=== PATIENT | female | born 1945 | race Caucasian/White ===

== ENCOUNTER → 2019-05-15 | Outpatient (CLI) | payer OTHER ==
[~2019-05-15] MED LIST: AMLO5TAB9 PO; ASCO10007 PO; CHOL-9 PO; CYAN250010 SL; ESCI20TA36 PO; L-THYROXIN PO; MAGN400T40 PO; MULT-729 PO; SUMATRIPTAN PO
== END | disposition home or self-care (01) ==
LOC: RAH 10:17
PROVIDERS: ATTEND Internal Medicine Cardiovascular Disease
DX: Z13.6 Encounter for screening for cardiovascular disorders (principal)
CPT/HCPCS: 75571

== ENCOUNTER 2019-05-29 12:00 | Observation (INO) | payer OTHER ==
[~2019-05-29] VITALS: Ht 165.1 cm; Wt 84.1 kg
[2019-06-30 09:38] LABS: BASOPHILS % (AUTO) 0.4 % (0.0-5.0); EOSINOPHILS % (AUTO) 1.2 % (0.0-8.0); HEMATOCRIT 41.4 % (36-48); LYMPHOCYTES % (AUTO) 19.8 % (21.0-51.0); MEAN CORPUSCULAR HEMOGLOBIN 30.8 pg (27.0-33.0); MEAN CORPUSCULAR HGB CONC 34.3 g/dL (32.0-36.0); MEAN CORPUSCULAR VOLUME 89.8 fL (79-99); MONOCYTES % (AUTO) 9.2 % (3.0-13.0); NEUTROPHILS % (AUTO) 68.8 % (40.0-77.0); PLATELET COUNT (AUTO) 303 K/uL (130-400); RED BLOOD CELL COUNT(AUTO) 4.61 MIL/uL (4.00-5.50); RED CELL DISTRIBUTION WIDTH 12.4 % (11.0-15.5); WHITE BLOOD COUNT (AUTO) 13.6 K/uL (4.8-10.8)
[2019-06-30 09:53] LABS: CREATININE 1.4 mg/dL (0.5-1.5); POTASSIUM 3.8 mmol/L (3.5-5.1)
[2019-06-30 10:04] VITALS: BP 127/70
[2019-06-30] MEDS: CEFAZOLIN SODIUM 1 GM VIAL IVP SCH (11:15)
[2019-06-30] MEDS ORDERED: AMLO2.5T4 PO (11:24)
[2019-06-30] MEDS ORDERED: LEVO50TA11 PO (11:24)
[2019-06-30] MEDS ORDERED: LEVO50 PO (11:24)
[2019-06-30] MEDS ORDERED: OMEP40CA13 PO (11:27)
[2019-06-30] MEDS ORDERED: FLUT16H NASAL (11:27)
[2019-06-30] MEDS ORDERED: MONT10TA26 PO (11:27)
[2019-06-30] MEDS ORDERED: BUDE10.2 IH (11:27)
[2019-06-30] MEDS ORDERED: TRIA1TAB3 PO (11:27)
[2019-06-30] MEDS ORDERED: ROPI1TAB13 PO (11:27)
--- NOTE | 2019-06-30 11:33 | NUR ---
LABS ABNORMAL LABS REPORTED TO DR. VEGA, MESSAGE LEFT WITH JESSICA , AWAITING FOR FURTHER ORDERS
--- NOTE | 2019-06-30 14:20 | NUR ---
LABS PER ANESTHESIA REPEAT LABS AM OF SURGERY. DUE TO ABNORMAL LABS REPORTED
[2019-07-01] VITALS (25 sets, daily range): BP systolic 97–167; BP diastolic 46–78
[2019-07-01 06:22] LABS: BASOPHILS % (AUTO) 0.4 % (0.0-5.0); EOSINOPHILS % (AUTO) 2.3 % (0.0-8.0); HEMATOCRIT 40.2 % (36-48); LYMPHOCYTES % (AUTO) 21.3 % (21.0-51.0); MEAN CORPUSCULAR HEMOGLOBIN 30.6 pg (27.0-33.0); MEAN CORPUSCULAR HGB CONC 34.6 g/dL (32.0-36.0); MEAN CORPUSCULAR VOLUME 88.5 fL (79-99); MONOCYTES % (AUTO) 10.4 % (3.0-13.0); NEUTROPHILS % (AUTO) 64.9 % (40.0-77.0); PLATELET COUNT (AUTO) 281 K/uL (130-400); RED BLOOD CELL COUNT(AUTO) 4.54 MIL/uL (4.00-5.50); RED CELL DISTRIBUTION WIDTH 12.2 % (11.0-15.5); WHITE BLOOD COUNT (AUTO) 13.7 K/uL (4.8-10.8)
[2019-07-01] MEDS ORDERED: CEFAZOLIN SODIUM 1 GM VIAL ONE ×2 (06:22→08:18)
[2019-07-01] MEDS ORDERED: LACTATED RINGERS 1000ML 1,000 ML IV ONE (06:22)
[2019-07-01 06:32] LABS: CREATININE 1.3 mg/dL (0.5-1.5); POTASSIUM 3.1 mmol/L (3.5-5.1)
--- NOTE | 2019-07-01 07:05 | NUR ---
LABS REPEAT LABS THIS AM REPORTED TO SHIVA MERCADO CRNA. NO FURTHER ORDERS GIVEN
[2019-07-01] MEDS ORDERED: ONDANSETRON HCL 4 MG/2 ML VIAL ONE (08:15)
[2019-07-01] MEDS ORDERED: GLYCOPYRROLATE 1 MG/5 ML SYRINGE ONE (08:15)
[2019-07-01] MEDS ORDERED: ROCURONIUM 10MG/1ML SYR 10 MG/ML ML ONE (08:15)
[2019-07-01] MEDS ORDERED: LIDOCAINE HCL-MPF 1% 5ML AMP IJ ONE (08:15)
[2019-07-01] MEDS ORDERED: NEOSTIGMINE 5MG/5ML SYR IV ONE (08:15)
[2019-07-01] MEDS ORDERED: MIDAZOLAM HCL 1 MG/ML 2ML VIAL ONE (08:15)
[2019-07-01] MEDS ORDERED: PROPOFOL 10 MG/ML 20ML VIAL IV ONE (08:15)
[2019-07-01] MEDS ORDERED: DEXAMETHASONE SOD PHOSPHATE 10MG/ML 1ML VIAL ONE (08:15)
[2019-07-01] MEDS ORDERED: FENTANYL CITRATE PF 50 MCG/1 ML 5ML AMP IV ONE (08:16)
[2019-07-01] MEDS ORDERED: BUPIVACAINE/EPI/PF 0.25% 30ML VIAL IJ ONE (08:18)
[2019-07-01] MEDS ORDERED: THROMBIN-JMI 20000 UNIT KIT TP ONE (08:18)
[2019-07-01] MEDS ORDERED: DURAMORPH PF1 MG/ML 10ML AMP IV ONE (08:18)
[2019-07-01] MEDS: CEFAZOLIN SODIUM 1 GM VIAL IVP SCH (08:30)
[2019-07-01] MEDS ORDERED: EPHEDRINE SULFATE 50 MG/ML AMPULE ONE (09:03)
[2019-07-01] MEDS ORDERED: LACTATED RINGERS 1000ML 1,000 ML IV SCH (10:53)
[2019-07-01] MEDS ORDERED: SODIUM CHLORIDE 0.9% 10 ML VIAL IVP PRN (11:00)
[2019-07-01] MEDS ORDERED: LEVOTHYROXINE 50 MCG TABLET PO SCH (11:00)
[2019-07-01] MEDS ORDERED: PROMETHAZINE HCL 25 MG/ML 1ML AMPULE IM PRN (11:00)
[2019-07-01] MEDS ORDERED: CEFAZOLIN SODIUM 1 GM VIAL IVP SCH ×2 (11:00→20:00)
[2019-07-01] MEDS: PHARMACY COMMUNICATION MISC SCH ×2 (11:15→19:15)
[2019-07-01] MEDS: MORPHINE SULFATE 2 MG/ML 1ML SYG IVP PRN ×2 (13:00→15:31)
[2019-07-01] MEDS: DEXAMETHASONE SOD PHOSPHATE 4 MG/ML 1ML VIAL IVP SCH ×3 (13:01→23:54)
--- NOTE | 2019-07-01 13:40 | NUR ---
PT HERE FROM SURGERY . FROM RECOVERY ROOM, PT AAO X [address] Marie SIX ORDERS PT. HAS A DRSG TO HER BACK AND A J. P. DRAIN NOT COMPRESS WITH SOME SANGROUS DRAINAGE NOTED PER ORDER TO BE COMPRESS IN 4 HRS. DRSG TO HER LOWER BACK CLEAN, NOTED. TEDS , SCD PLACED AND POSTOP V/S. AND NEURO SIGH STARTED , GOOD STRONG CLEANER ASSISTANT .AND FEET PRESSESS . CALL LIGHT IN REACH. PT ALSO HAS A ABRAHAM CATHETER , AND IS SECURE TO HER LEFT LEG . PATENCY NOTED .WITH A URINE FLOW OF CLEAR YELLOW URINE . BAG OFF THE FLOOR.
[2019-07-01] MEDS: HYDROCODONE/ACETAMINOPHEN 5/325 MG TAB PO PRN ×2 (14:24→18:02)
--- NOTE | 2019-07-01 15:27 | NUR ---
INITIAL NOTE MET W PATIENT AT BEDSIDE, S/P LUMBAR LAMI, LIVES WITH SPOUSE [facility] WHO WILL PROVIDE TRANSPORT AT [place]. PREVIOUSLY INDEPENDENT, ACTIVE, DRIVES, NO DME, HOME SAFE AND ACCESSIBLE. NO COMPLAINTS OF PAIN/DISCOMFORT, DCP HOME Addendum: 07/01/19 at 1533 by ESTHER SCHAEFER RN Amended: Links added.
--- NOTE | 2019-07-01 15:40 | NUR ---
1529 patient signed LOUIE Letter, I faxed LOUIE Letter to [phone] and placed in chart under consent tab.
--- NOTE | 2019-07-01 17:50 | NUR ---
UP AMBULATED WITH ASSITANCE AND TOLERATE WELL. PT ASSIT BACK TO BED . . J.P. DRAIN COMPRESS . NOTED DRSG TO BACK DRY ,
[2019-07-01] MEDS ORDERED: MONTELUKAST SODIUM 10 MG TAB PO SCH (21:00)
[2019-07-01] MEDS ORDERED: ROPINIROLE HCL 1 MG TABLET PO SCH (21:00)
[2019-07-01] MEDS: FLUTICASONE PROPIONATE 50MCG/SPRAY 16 GM BOTTLE NS SCH (21:00)
[2019-07-02 03:00] VITALS: BP 99/53
[2019-07-02] MEDS: MORPHINE SULFATE 2 MG/ML 1ML SYG IVP PRN (04:59)
[2019-07-02] MEDS: DEXAMETHASONE SOD PHOSPHATE 4 MG/ML 1ML VIAL IVP SCH (05:00)
--- NOTE | 2019-07-02 05:00 | NUR ---
ABRAHAM CATHETER D/C 10 CC REMOVED FROM [place] PT TOLERATED PROCEDURE WELL PENDING TO VOID
[2019-07-02] MEDS ORDERED: LEVOTHYROXINE 100 MCG TABLET PO SCH (06:30)
[2019-07-02] MEDS ORDERED: LEVOTHYROXINE 50 MCG TABLET PO SCH (06:30)
[2019-07-02] MEDS: HYDROCODONE/ACETAMINOPHEN 5/325 MG TAB PO PRN (06:35)
--- NOTE | 2019-07-02 06:58 | NUR ---
PT VOIDED 150 CC OF YELLOW CLEAR URINE
[2019-07-02 07:57] VITALS: BP 114/58
--- NOTE | 2019-07-02 08:00 | NUR ---
DR. VEGA IN TO SEE PT. DISCHARGE ORDERS WRITTEN.
[2019-07-02] MEDS: FLUTICASONE PROPIONATE 50MCG/SPRAY 16 GM BOTTLE NS SCH (08:44)
[2019-07-02] MEDS ORDERED: SYMBICORT 160-4.5 MCG INHALER IH SCH (09:00)
[2019-07-02] MEDS ORDERED: TRIAMTERENE/HYDROCHLOROTHIAZID 37.5/25 MG TAB PO SCH (09:00)
[2019-07-02] MEDS ORDERED: PANTOPRAZOLE SODIUM 40 MG TABLET.DR PO SCH (09:00)
[2019-07-02] MEDS ORDERED: AMLODIPINE BESYLATE 2.5 MG TAB PO SCH (09:00)
--- NOTE | 2019-07-02 11:25 | NUR ---
JUNE REMOVED, EMPTIED OF 25 ML BLOOD, STERI-STRIPS APPLIED AND COVERED. SURGICAL WOUND CLEANED AND PAINTED WITH BETADINE AND COVERED WITH 4X4.
[2019-07-02 11:33] VITALS: BP 105/54
--- NOTE | 2019-07-02 11:50 | NUR ---
DISCHARGED NOW USING TEACH BACK . RX FOR TORADOL GIVEN, APPT. TO FOLLOW UP WITH DR. VEGA ALSO GIVEN. SALINE LOCK REMOVED. VERBALIZED UNDERSTANDING OF ALL INST GIVEN. WILL WHEEL HER DOWNSTAIRS WHEN HER TRANSPORTATION ARRIVES.
== END 2019-07-02 12:15 | disposition home or self-care (01) ==
LOC: EDSTATUS 06-30 09:00 → DAHIP 06-30 15:27 → UNDOADMOB 06-30 15:27 → DAHIP 07-01 05:46 → 3BH 07-01 12:20
PROVIDERS: ADMIT Neurological Surgery; ATTEND Neurological Surgery
DX: M48.061 Spinal stenosis, lumbar region without neurogenic claudication (principal); M25.78 Osteophyte, vertebrae
CPT/HCPCS: 36415 ×2; 63047; 63048; 72020; 80048 ×2; 85025 ×2; 96374; 96375; 96376 ×2; A4215; A4221; A4222; A4223; A4344; A4600; A4649 ×4; A4663; A6260; G0378 ×21; J0690 ×3; J1100 ×4; J2250; J2274; J2405; J2704; J2710; J3010; J3490 ×4; J7030; J7120 ×3

== ENCOUNTER 2020-02-05 06:38 | Day surgery (SDC) | payer OTHER ==
[2020-02-03 14:03] LABS: BASOPHILS % (AUTO) 0.3 % (0.0-5.0); HEMATOCRIT 43.3 % (36-48); LYMPHOCYTES % (AUTO) 24.6 % (21.0-51.0); MEAN CORPUSCULAR HEMOGLOBIN 30.5 pg (27.0-33.0); MEAN CORPUSCULAR HGB CONC 33.7 g/dL (32.0-36.0); MEAN CORPUSCULAR VOLUME 90.6 fL (79-99); MONOCYTES % (AUTO) 7.8 % (3.0-13.0); PLATELET COUNT (AUTO) 234 K/uL (130-400); RED BLOOD CELL COUNT(AUTO) 4.78 MIL/uL (4.00-5.50); RED CELL DISTRIBUTION WIDTH 12.7 % (11.0-15.5)
[2020-02-03 14:14] LABS: APPEARANCE,URINE Clear (CLEAR); BILIRUBIN,URINE Negative (NEGATIVE); COLOR,URINE Yellow (YELLOW); GLUCOSE, URINE (UA) Negative (NEGATIVE); KETONES,URINE Negative (NEGATIVE); LEUKOCYTE ESTERASE ,URINE Small (NEGATIVE); NITRATE,URINE Negative (NEGATIVE); OCCULT BLOOD,URINE Negative (NEGATIVE); PH,URINE 7.5 (5.0-8.0); PROTEIN,URINE Negative (NEGATIVE)
[2020-02-03 14:22] LABS: CREATININE 1.4 mg/dL (0.5-1.5); POTASSIUM 3.9 mmol/L (3.5-5.1)
[2020-02-03 14:25] LABS: INR 0.92 (0.85-1.15); PARTIAL THROMBOPLASTIN TIME 25.1 SEC (26.3-35.5)
[2020-02-03 14:43] LABS: BACTERIA,URINE Rare /HPF (None Seen); RBC,URINE 0-1 /HPF (0-1); SQUAMOUS EPITHELIAL CELL,UR Rare /HPF (0-2); WBC,URINE 0-1 /HPF (0-1)
[~2020-02-05] VITALS: Ht 165.1 cm; Wt 72.4 kg
[2020-02-05] VITALS (10 sets, daily range): BP systolic 82–95; BP diastolic 44–61
[~2020-02-05 06:38] MED LIST changes: -AMLO5TAB9 PO; -ASCO10007 PO; +ASPI-1443 PO; +ATOR40TA71 PO; -CHOL-9 PO; -CYAN250010 SL; -ESCI20TA36 PO; +FURO20TA4 PO; -L-THYROXIN PO; +LISI10TA7 PO; -MAGN400T40 PO; +METF-444 PO; +METO-408 PO; -MULT-729 PO; +ROPI1TAB13 PO; +SODIUM CHLORIDE 0.9% 500ML 500 ML IV SCH; -SUMATRIPTAN PO; +TRIA1TAB3 PO
[2020-02-05] MEDS ORDERED: SODIUM CHLORIDE 0.9% 1000ML 1,000 ML IV ONE (07:15)
[2020-02-05] MEDS ORDERED: LIDOCAINE HCL 2% 20ML ONE (10:15)
[2020-02-05] MEDS ORDERED: HEPARIN SODIUM 1000UNIT/ML 10ML VIAL ONE (10:15)
[2020-02-05] MEDS ORDERED: IOHEXOL 350 MG/ML 100ML INFUS..BTL IV ONE (10:15)
[2020-02-05] MEDS ORDERED: MIDAZOLAM HCL 1 MG/ML 2ML VIAL ONE (10:15)
[2020-02-05] MEDS ORDERED: IOHEXOL-350 50ML VIAL IV ONE (10:15)
[2020-02-05] MEDS ORDERED: NITROGLYCERIN 4.1 GM SPRAY TL ONE (10:17)
[2020-02-05] MEDS ORDERED: DEXTROSE 50%-WATER 50 ML DISP.SYRIN IV PRN (11:30)
[2020-02-05] MEDS ORDERED: GLUCAGON 1MG KIT 1 MG ML IM PRN (11:30)
== END 2020-02-05 15:00 | disposition home or self-care (01) ==
LOC: DAH 06:38
PROVIDERS: ATTEND Internal Medicine Cardiovascular Disease
DX: I25.118 Atherosclerotic heart disease of native coronary artery with other forms of angina pectoris (principal); J45.909 Unspecified asthma, uncomplicated; G47.33 Obstructive sleep apnea (adult) (pediatric); E03.9 Hypothyroidism, unspecified; M79.7 Fibromyalgia; I44.7 Left bundle-branch block, unspecified; I11.9 Hypertensive heart disease without heart failure; I42.0 Dilated cardiomyopathy; Z99.89 Dependence on other enabling machines and devices; Z90.49 Acquired absence of other specified parts of digestive tract; Z90.89 Acquired absence of other organs; Z90.710 Acquired absence of both cervix and uterus; Z86.73 Personal history of transient ischemic attack (TIA), and cerebral infarction without residual deficits; Z88.8 Allergy status to other drugs, medicaments and biological substances; Z79.01 Long term (current) use of anticoagulants; Z79.899 Other long term (current) drug therapy
CPT/HCPCS: 36415; 71045; 80048; 81001; 82948 ×2; 85025; 85610; 85730; 93005; 93458; A4215; A4216; A4221; A4222; A4223 ×3; A4606; A4663; C1760; C1894; J1644; J2250; J3490; J7030; Q9965; Q9967 ×2; 99156; 99157

== ENCOUNTER 2024-04-15 06:55 | Day surgery (SDC) | payer MEDICARE ==
[2024-04-15] VITALS (10 sets, daily range): BP systolic 96–129; BP diastolic 56–73; PULSE 70–85; RESP 16–17; TEMP 97.1–98
[~2024-04-15] VITALS: Ht 162.6 cm; Wt 78.0 kg
[~2024-04-15 06:55] MED LIST changes: -ASPI-1443 PO; -ATOR40TA71 PO; +DULO60CA64 PO; +EREN70AU SQ; -FURO20TA4 PO; +FURO40TA5 PO; -LISI10TA7 PO; -METF-444 PO; +MYCO500T5 PO; +PANT40TA54 PO; +PYRI60TA PO; -ROPI1TAB13 PO; +ROPI1TAB46 PO; -SODIUM CHLORIDE 0.9% 500ML 500 ML IV SCH; +SPIR25TA6 PO; +SUMA25TA9 PO; -TRIA1TAB3 PO
[2024-04-15] MEDS: 0.9%NACL 1000ML 1,000 ML IV ONE (08:41)
[2024-04-15] MEDS ORDERED: proPOFol 10 MG/ML 20ML VIAL IV ONE ×2 (11:15)
--- NOTE | 2024-04-15 12:54 | NUR ---
Full and complete Discharge Instructions given to Patient and Family both verbally and in writing.. All questions answered.Voiced understanding to GI procedure precautions and Follow Up. PIV removed with catheter tip intact. Denies c/o pain or discomfort. W/C to POV with Family to home.
== END 2024-04-15 12:50 | disposition home or self-care (01) ==
LOC: ENDO 06:55 → DAH 06:55 → ENDO 12:50
PROVIDERS: ATTEND Internal Medicine Gastroenterology
DX: R19.4 Change in bowel habit (principal); K29.70 Gastritis, unspecified, without bleeding; K31.89 Other diseases of stomach and duodenum; K55.20 Angiodysplasia of colon without hemorrhage; K76.89 Other specified diseases of liver; R13.10 Dysphagia, unspecified; K26.9 Duodenal ulcer, unspecified as acute or chronic, without hemorrhage or perforation; K21.00 Gastro-esophageal reflux disease with esophagitis, without bleeding; K25.3 Acute gastric ulcer without hemorrhage or perforation; K57.30 Diverticulosis of large intestine without perforation or abscess without bleeding; K44.9 Diaphragmatic hernia without obstruction or gangrene; G47.00 Insomnia, unspecified; I10 Essential (primary) hypertension; M79.7 Fibromyalgia; E03.9 Hypothyroidism, unspecified; K21.9 Gastro-esophageal reflux disease without esophagitis; Z90.49 Acquired absence of other specified parts of digestive tract; Z90.710 Acquired absence of both cervix and uterus; Z96.641 Presence of right artificial hip joint; Z88.8 Allergy status to other drugs, medicaments and biological substances; Z79.899 Other long term (current) drug therapy
CPT/HCPCS: 43239; 45380; J7030 ×2; J2704 ×2; A4620; A4215 ×2; A4223; A4657; A7002; A4222; A4221; A4663; A4606; J3490

== ENCOUNTER → 2024-05-16 | Outpatient (CLI) | payer MEDICARE ==
[2024-05-16 12:49] LABS: POTASSIUM 3.6 mmol/L (3.5-5.1)
== END | disposition home or self-care (01) ==
LOC: LAB 10:13
PROVIDERS: ATTEND Internal Medicine Cardiovascular Disease
DX: I10 Essential (primary) hypertension (principal)
CPT/HCPCS: 36415; 80048